=== PATIENT | male | born 1945 | race Caucasian/White ===

== ENCOUNTER → 2016-08-15 | Outpatient (CLI) | payer MEDICARE ==
[~2016-08-15] MED LIST: ALBU17IN INH; ASPI1TAB PO; ESZO1TAB3 PO; LIDO5DIS36 TD; LOSA50TA20 PO; OMEP40CA2 PO; PENT500C PO; VITA1CAP2 PO
--- NOTE | 2016-08-15 13:16 | REP ---
TWO VIEW CHEST: Two views of the chest are performed and compared to prior study of 01/01/2011. There is a small left pleural effusion. No pneumothorax or acute infiltrate is seen. There is diffuse interstitial fibrosis which is stable. Heart does not appear to be significantly enlarged. There is a calcification of the thoracic aorta. The mediastinal silhouette is unchanged. Multiple sternal wires and mediastinal clips are present. Metallic plate and screws are seen in the lower cervical spine. There are mild degenerative changes of the spine. Dorsal column stimulator is noted posteriorly. The visualized osseous structures are intact. IMPRESSION: Small left pleural effusion. No other radiographic evidence of acute abnormality.
== END ==
LOC: M CLY 09:40
PROVIDERS: ATTEND Nurse Practitioner
DX: S29.9XXA Unspecified injury of thorax, initial encounter (principal); J90 Pleural effusion, not elsewhere classified; W00.9XXA Unspecified fall due to ice and snow, initial encounter; Y92.9 Unspecified place or not applicable; Y93.9 Activity, unspecified; Y99.8 Other external cause status; X58.XXXA Exposure to other specified factors, initial encounter
CPT/HCPCS: 71020; G0463

== ENCOUNTER → 2016-08-28 | Outpatient (REF) | payer MEDICARE ==
[2016-08-28 17:35] LABS: BASO % 0.6 % (0.0-1.0); EOS # 0.2 K/mm3 (0.0-0.50); EOS % 2.9 % (0.0-3.0); LARGE UNSTAINED CELL # 0.2 K/mm3 (0.0-0.4); LARGE UNSTAINED CELL % 2.7 % (0.0-4.0); LYMPH # 1.5 K/mm3 (1.5-4.5); LYMPH % 24.1 % (24.0-44.0); MEAN CORPUSCULAR HEMOGLOBIN 34.2 pg (27.0-33.0); MEAN CORPUSCULAR HGB CONC 34.4 g/dl (32.0-36.5); MEAN CORPUSCULAR VOLUME 99.4 fl (80.0-96.0); MONO # 0.5 K/mm3 (0.0-0.8); MONO % 7.6 % (0.0-5.0); NEUTROPHILS # 3.8 K/mm3 (1.8-7.7); NEUTROPHILS % 62.1 % (36.0-66.0); PLATELET COUNT, AUTOMATED 159 k/mm3 (150-450); RED CELL DISTRIBUTION WIDTH 12.7 % (11.5-14.5)
[2016-08-28 18:03] LABS: ERYTHROCYTE SEDIMENTATION RATE 29 mm/hr (0-20)
[2016-08-28 18:48] LABS: ALBUMIN 3.8 GM/DL (3.2-5.2); ALBUMIN/GLOBULIN RATIO 1.06 (1.00-1.93); ALKALINE PHOSPHATASE 99 U/L (45-117); ALT/SGPT 29 U/L (12-78); ANION GAP 10 MEQ/L (8-16); AST/SGOT 18 U/L (15-37); BILIRUBIN,TOTAL 0.5 MG/DL (0.2-1.0); BLOOD UREA NITROGEN 18 MG/DL (7-18); CALCIUM LEVEL 9.1 MG/DL (8.8-10.2); CARBON DIOXIDE LEVEL 25 MEQ/L (21-32); CHLORIDE LEVEL 106 MEQ/L (98-107); CREATININE FOR GFR 0.74 MG/DL (0.70-1.30); GLOMERULAR FILTRATION RATE > 60.0 (>49); GLUCOSE, FASTING 97 MG/DL (80-110); POTASSIUM SERUM 4.1 MEQ/L (3.5-5.1); SODIUM LEVEL 141 MEQ/L (136-145); TOTAL PROTEIN 7.4 GM/DL (6.4-8.2); URIC ACID 4.8 MG/DL (3.5-7.2)
== END ==
LOC: M SFHCCLAY 11:45
PROVIDERS: ATTEND Family Medicine
DX: M25.40 Effusion, unspecified joint (principal)
CPT/HCPCS: 80053; 84550; 85025; 85652; 86038; 86140; 86200; G0463

== ENCOUNTER → 2016-09-10 | Day surgery (SDC) | payer MEDICARE ==
[~2016-09-10] VITALS: Ht 170.2 cm; Wt 97.1 kg
[~2016-09-10] MED LIST changes: +LIDOCAINE 2% INJ 100 MG/5 ML SDV (FOR ANES.) As Ordered ONE; +LR 1,000 ML IV SCH; +MIDAZOLAM INJ 2 MG/2 ML VIAL (J2250) As Ordered ONE; +NORCO, ANEXSIA 5/325MG TABLET (HYDROcodone/ACETAMINOPHEN) PO PRN; +ONDANSETRON 4MG/2ML VIAL (J2405) As Ordered ONE; +ONDANSETRON 4MG/2ML VIAL (J2405) IV PRN; +PROPOFOL 200 MG/20 ML VIAL As Ordered ONE; +ROPIvacaine 0.5% 30 ML INJECTION (J2795) As Ordered ONE; +ROPIvacaine 0.5% 30 ML INJECTION (J2795) XX ONE; +TRIAMCINOLONE ACETONIDE SUSP 40 MG/ML VIAL (J3301) As Ordered ONE; +TRIAMCINOLONE ACETONIDE SUSP 40 MG/ML VIAL (J3301) XX ONE; +ePHEDrine SULFATE 25 MG/5 ML(5MG/ML) SYRINGE As Ordered ONE; +fentaNYL 100 MCG/2 ML INJECTION (J3010) As Ordered ONE
[2016-09-10] MEDS: fentaNYL 100 MCG/2 ML INJECTION (J3010) IV PRN ×3 (08:35→08:59)
[2016-09-10 10:30] VITALS: BP 145/71
--- NOTE | 2016-09-10 14:57 | RO ---
DATE OF PROCEDURE: 09/10/2016 PREOPERATIVE DIAGNOSES: Right knee osteoarthritis, medial meniscus tear. POSTOPERATIVE DIAGNOSES: Right knee osteoarthritis, medial meniscus tear, with loose bodies in the anterior and lateral compartment. PROCEDURE: Right knee operative arthroscopy, partial medial meniscectomy, and excision of lateral compartment loose body, 8-9 mm. SURGEON: Jacques Bowers MD VETERINARY ATTENDANT: Shania Rivera PA-C ANESTHESIA: General. ESTIMATED BLOOD LOSS (EBL): Minimal. COMPLICATIONS: None. INDICATION: This is a 70-year-old gentleman who has had some gradually worsening right knee pain. He had a CT arthrogram that was suggestive of a meniscus tear. He had failed conservative management and wished to go ahead with surgical treatment. He understood the nature of the procedure, risks of bleeding, infection, damage to nerves, vessels, persistent pain, blood clots, stiffness, medical problems, among others. He understood that we are generally not able to help the arthritis component during arthroscopy. DESCRIPTION OF PROCEDURE: The patient taken to the operating room, placed in supine position after general anesthesia was induced. The right lower extremity was prepped and draped in the usual sterile fashion. I then after time-out was performed, I created inferomedial and inferolateral portals per routine. Identified the patellofemoral joint. However, it was very difficult to get into the patellofemoral joint due to significant osteophytes around the periphery of the patella, but he did seem to have fairly advanced patellofemoral arthritis. I proceeded down both gutters, identified the medial compartment. There was a posteromedial meniscus tear. This was debrided back with a combination of basket punch and a 4.2 shaver back to a stable rim, and I reprobed the meniscus. There was moderate arthritic business change manager the medial tibial plateau with some cartilage thinning and fraying. There was an area on the medial femoral condyle with full thickness articular cartilage loss with some loose flaps, and these were debrided back carefully with a shaver. Identified the notch. The anterior cruciate ligament (ACL) was intact, but at the tibial spines, there was a very large osteophyte that impinged on the notch and trochlea when I fully extended the knee; so, I removed this with a combination of a pituitary and a bur from just using the shaver. There was also a loose body in the lateral compartment that was approximately 8 mm or 9 mm in diameter, and I retrieved this and removed it with a pituitary. Lateral compartments otherwise examined. There was at least some moderate arthritis laterally. No significant lateral meniscus tear was noted. I then reexamined the entire joint, irrigated copiously, removed the instrumentation, closed the portals using 4-0 nylon suture, and injected 30 mL of Naropin with 40 mg of Kenalog. Sterile dressing was applied. Tourniquet was deflated. He was taken to recovery room in stable condition. There were no known complications. The plan will be routine postoperative.
== END | disposition home or self-care (01) ==
LOC: M SDC 05:37
PROVIDERS: ATTEND Orthopaedic Surgery
DX: M23.221 Derangement of posterior horn of medial meniscus due to old tear or injury, right knee (principal); M23.41 Loose body in knee, right knee; M25.761 Osteophyte, right knee; M17.11 Unilateral primary osteoarthritis, right knee; E11.9 Type 2 diabetes mellitus without complications; I10 Essential (primary) hypertension; J45.909 Unspecified asthma, uncomplicated; I51.9 Heart disease, unspecified; E78.00 Pure hypercholesterolemia, unspecified; Z79.899 Other long term (current) drug therapy; Z87.891 Personal history of nicotine dependence; N28.9 Disorder of kidney and ureter, unspecified; Z85.46 Personal history of malignant neoplasm of prostate; I25.2 Old myocardial infarction; Z79.82 Long term (current) use of aspirin; G47.30 Sleep apnea, unspecified
CPT/HCPCS: 29881; 88300; J0690; J2250; J2405; J2795; J3010; J3301

== ENCOUNTER → 2016-10-08 | Outpatient (CLI) | payer MEDICARE ==
[~2016-10-08] MED LIST changes: -LIDOCAINE 2% INJ 100 MG/5 ML SDV (FOR ANES.) As Ordered ONE; -LR 1,000 ML IV SCH; -MIDAZOLAM INJ 2 MG/2 ML VIAL (J2250) As Ordered ONE; -NORCO, ANEXSIA 5/325MG TABLET (HYDROcodone/ACETAMINOPHEN) PO PRN; -ONDANSETRON 4MG/2ML VIAL (J2405) As Ordered ONE; -ONDANSETRON 4MG/2ML VIAL (J2405) IV PRN; -PROPOFOL 200 MG/20 ML VIAL As Ordered ONE; -ROPIvacaine 0.5% 30 ML INJECTION (J2795) As Ordered ONE; -ROPIvacaine 0.5% 30 ML INJECTION (J2795) XX ONE; -TRIAMCINOLONE ACETONIDE SUSP 40 MG/ML VIAL (J3301) As Ordered ONE; -TRIAMCINOLONE ACETONIDE SUSP 40 MG/ML VIAL (J3301) XX ONE; -ePHEDrine SULFATE 25 MG/5 ML(5MG/ML) SYRINGE As Ordered ONE; -fentaNYL 100 MCG/2 ML INJECTION (J3010) As Ordered ONE
== END ==
LOC: M SLEEP 19:29
PROVIDERS: ATTEND Internal Medicine Pulmonary Disease
DX: G47.33 Obstructive sleep apnea (adult) (pediatric) (principal)

== ENCOUNTER → 2016-10-30 | Outpatient (CLI) | payer MEDICARE ==
--- NOTE | 2016-10-30 09:05 | REP ---
Chest two views HISTORY: Bronchitis Comparison: 08/15/2016 The lungs are clear. The heart is normal in size. The pulmonary vasculature is normal in appearance. The bony structure is intact. A dorsal column stimulator is present in the lower thoracic spinal canal. IMPRESSION: No acute disease.
== END ==
LOC: M CLY 07:43
PROVIDERS: ATTEND Family Medicine
DX: J44.0 Chronic obstructive pulmonary disease with (acute) lower respiratory infection (principal)
CPT/HCPCS: 71020; G0463

== ENCOUNTER → 2017-11-07 | Outpatient (CLI) | payer MEDICARE ==
[2017-11-07 14:20] LABS: BASO # 0.1 10^3/uL (0.0-0.2); BASO % 0.8 % (0.0-1.0); EOS # 0.2 10^3/uL (0.0-0.50); EOS % 2.5 % (0.0-3.0); HEMOGLOBIN 14.7 g/dl (13.5-17.5); IMMATURE GRANULOCYTE % 0.2 % (0-3.0); LYMPH # 1.9 10^3/uL (1.5-4.5); LYMPH % 30.1 % (24.0-44.0); MEAN CORPUSCULAR HEMOGLOBIN 34.7 pg (27.0-33.0); MEAN CORPUSCULAR VOLUME 99.1 fl (80.0-96.0); MONO # 0.8 10^3/uL (0.0-0.8); MONO % 12.1 % (0.0-5.0); NEUTROPHILS # 3.5 10^3/uL (1.8-7.7); NEUTROPHILS % 54.3 % (36.0-66.0); PLATELET COUNT, AUTOMATED 156 10^3/uL (150-450); RED BLOOD COUNT 4.24 10^6/uL (4.30-6.10); RED CELL DISTRIBUTION WIDTH 13.8 % (11.5-14.5); WHITE BLOOD COUNT 6.4 10^3/uL (4.0-10.0)
[2017-11-07 14:33] LABS: D-DIMER QUANT 513.2 ng/ml (<500)
[2017-11-07 14:52] LABS: ANION GAP 5 MEQ/L (8-16); BLOOD UREA NITROGEN 12 MG/DL (7-18); CALCIUM LEVEL 9.3 MG/DL (8.8-10.2); CARBON DIOXIDE LEVEL 29 MEQ/L (21-32); CHLORIDE LEVEL 109 MEQ/L (98-107); CREATININE FOR GFR 0.83 MG/DL (0.70-1.30); GLOMERULAR FILTRATION RATE > 60.0 (>42); GLUCOSE, FASTING 62 MG/DL (70-100); NT-PRO BNP 67 PG/ML (<125); SODIUM LEVEL 143 MEQ/L (136-145)
== END ==
LOC: M LAB 13:57
DX: I25.10 Atherosclerotic heart disease of native coronary artery without angina pectoris (principal); I11.9 Hypertensive heart disease without heart failure; I50.32 Chronic diastolic (congestive) heart failure; R06.02 Shortness of breath
CPT/HCPCS: 80048

== ENCOUNTER → 2017-12-04 | Outpatient (CLI) | payer MEDICARE ==
[2017-12-04 11:42] LABS: AMORPHOUS SEDIMENT SMALL (NEGATIVE); APPEARANCE, URINE CLEAR (CLEAR); BACTERIA, URINE AUTO NEGATIVE (NEGATIVE); BILIRUBIN, URINE AUTO NEGATIVE (NEGATIVE); BLOOD, URINE BLOOD NEGATIVE (NEGATIVE); COLOR, URINE YELLOW (YELLOW); GLUCOSE, URINE (UA) AUTO NEGATIVE (NEGATIVE); KETONE, URINE AUTO NEGATIVE (NEGATIVE); LEUKOCYTE ESTERASE, URINE AUTO NEGATIVE (NEGATIVE); MUCUS, URINE SMALL (NEGATIVE); NITRITE, URINE AUTO NEGATIVE (NEGATIVE); PROTEIN, URINE AUTO NEGATIVE (NEGATIVE); RBC, URINE AUTO 0 /HPF (0-3); SPECIFIC GRAVITY URINE AUTO 1.014 (1.002-1.035); SQUAMOUS EPITHELIAL CELL UR AU 0 /HPF (0-6); UROBILINOGEN, URINE AUTO 0.2 mg/dL (0.0-2.0); WBC, URINE AUTO 0 /HPF (0-3)
[2017-12-04 11:43] LABS: HEMATOCRIT 38.5 % (42.0-52.0); HEMOGLOBIN 13.6 g/dl (13.5-17.5); MEAN CORPUSCULAR HEMOGLOBIN 34.8 pg (27.0-33.0); MEAN CORPUSCULAR HGB CONC 35.3 g/dl (32.0-36.5); MEAN CORPUSCULAR VOLUME 98.5 fl (80.0-96.0); PLATELET COUNT, AUTOMATED 149 10^3/uL (150-450); RED BLOOD COUNT 3.91 10^6/uL (4.30-6.10); RED CELL DISTRIBUTION WIDTH 13.8 % (11.5-14.5); WHITE BLOOD COUNT 4.8 10^3/uL (4.0-10.0)
[2017-12-04 11:50] LABS: INR 1.03; PROTHROMBIN TIME 13.6 SECONDS (12.4-14.5)
[2017-12-04 12:09] LABS: ALBUMIN 3.8 GM/DL (3.2-5.2); ALBUMIN/GLOBULIN RATIO 1.12 (1.00-1.93); ALKALINE PHOSPHATASE 84 U/L (45-117); ALT/SGPT 36 U/L (12-78); ANION GAP 7 MEQ/L (8-16); AST/SGOT 25 U/L (7-37); BILIRUBIN,TOTAL 0.7 MG/DL (0.2-1.0); BLOOD UREA NITROGEN 19 MG/DL (7-18); CALCIUM LEVEL 9.1 MG/DL (8.8-10.2); CARBON DIOXIDE LEVEL 25 MEQ/L (21-32); CHLORIDE LEVEL 110 MEQ/L (98-107); CREATININE FOR GFR 0.99 MG/DL (0.70-1.30); GLOMERULAR FILTRATION RATE > 60.0 (>42); GLUCOSE, FASTING 103 MG/DL (70-100); POTASSIUM SERUM 4.2 MEQ/L (3.5-5.1); SODIUM LEVEL 142 MEQ/L (136-145); TOTAL PROTEIN 7.2 GM/DL (6.4-8.2)
[2017-12-04 12:28] LABS: ERYTHROCYTE SEDIMENTATION RATE 22 mm/hr (0-20)
== END ==
LOC: M ADMPAT 09:34
DX: Z01.818 Encounter for other preprocedural examination (principal); M17.11 Unilateral primary osteoarthritis, right knee; J45.909 Unspecified asthma, uncomplicated; I51.9 Heart disease, unspecified; Z98.61 Coronary angioplasty status; Z79.01 Long term (current) use of anticoagulants; Z79.899 Other long term (current) drug therapy
CPT/HCPCS: 71046

== ENCOUNTER 2017-12-23 08:39 | Inpatient (IN) | payer MEDICARE ==
[2017-12-23] MEDS: MESALAMINE 250 MG CR CAP PO ×2 (09:00→20:22)
[2017-12-23] MEDS ORDERED: MIDAZOLAM INJ 2 MG/2 ML VIAL (J2250) As Ordered ×2 (09:19→09:34)
[2017-12-23] MEDS ORDERED: HYDROmorphone HCL 2 MG/ML 1ML VIAL (J1170) As Ordered ×2 (09:19→11:56)
[2017-12-23] MEDS ORDERED: PROPOFOL 200 MG/20 ML VIAL As Ordered (09:21)
[2017-12-23] MEDS ORDERED: LIDOCAINE 2% INJ 100 MG/5 ML SDV (FOR ANES.) As Ordered (09:21)
[2017-12-23] MEDS: LIDOCAINE 1% MDV 20ML VIAL SQ (09:24)
[2017-12-23] MEDS: LR 1,000 ML IV ×3 (09:24→14:54)
[2017-12-23] MEDS ORDERED: fentaNYL 100 MCG/2 ML INJECTION (J3010) As Ordered (09:34)
[2017-12-23] MEDS ORDERED: ROCURONIUM BROMIDE 50 MG/5 ML VIAL As Ordered (09:50)
[2017-12-23] MEDS: MIDAZOLAM INJ 2 MG/2 ML VIAL (J2250) IV (10:02)
[2017-12-23] MEDS: fentaNYL 100 MCG/2 ML INJECTION (J3010) IV (10:02)
[2017-12-23] MEDS ORDERED: ROPIvacaine 0.5% 30 ML INJECTION (J2795 PER 1MG) (10:57)
[2017-12-23] MEDS ORDERED: dexameTHASONE 10 MG/1 ML VIAL PRES.FREE (J1100) (10:57)
[2017-12-23] MEDS ORDERED: EPINEPHrine INJ 1 MG/ML 1ML AMP (10:57)
[2017-12-23] MEDS ORDERED: dexameTHASONE 4 MG/ML 1ML VIAL (J1100) As Ordered (11:12)
[2017-12-23] MEDS ORDERED: ONDANSETRON 4MG/2ML VIAL (J2405) As Ordered (11:12)
[2017-12-23] MEDS ORDERED: ePHEDrine SULFATE 25 MG/5 ML(5MG/ML) SYRINGE As Ordered (11:15)
[2017-12-23] MEDS: ceFAZolin 1GM INJ (J0690 PER 500MG) As Ordered (11:21)
[2017-12-23] MEDS: EPINEPHrine INJ 1 MG/ML 1ML AMP As Ordered (11:21)
[2017-12-23] MEDS: TRANEXAMIC ACID 100 MG/ML 10ML VIAL As Ordered (11:22)
[2017-12-23] MEDS ORDERED: SUGAMMADEX SODIUM 500 MG/5 ML VIAL (BRIDION) As Ordered (11:42)
[2017-12-23] MEDS: BUPIVACAINE LIPOSOME/PF 1.3% 20 ML VIAL (13.3MG/ML)(EXPAREL) As Ordered (11:50)
[2017-12-23] MEDS ORDERED: MORPHINE 1MG/ML IN 0.9% NACL 100ML IV BAG As Ordered (12:00)
[2017-12-23] MEDS ORDERED: fentaNYL 100 MCG/2 ML INJECTION (J3010) IV (12:30)
[2017-12-23] MEDS ORDERED: ONDANSETRON 4MG/2ML VIAL (J2405) IV ×3 (12:30→12:45)
[2017-12-23] MEDS ORDERED: ALBUTEROL 90 MCG/ACT 8GM HFA INHALER INH (12:45)
[2017-12-23] MEDS ORDERED: NALOXONE INJ 0.4 MG/1 ML VIAL (J2310) IV (12:45)
[2017-12-23] MEDS ORDERED: IPRATROPIUM 0.5MG/ALBUTEROL 2.5MG INH SOL UD 3ML (DUONEB)(J7620) NEB (12:45)
[2017-12-23] MEDS ORDERED: ACETAMINOPHEN TAB 650MG DOSE (2X325MG) PO (12:45)
[2017-12-23] MEDS ORDERED: MORPHINE 1MG/ML IN 0.9% NACL 100ML IV BAG IV (12:45)
[2017-12-23] MEDS ORDERED: EPIDURAL/PCA KEYS XX (12:45)
[2017-12-23] MEDS ORDERED: NALBUPHINE HCL 10 MG/ML AMP (J2300) IV (12:45)
[2017-12-23] MEDS ORDERED: diphenhydrAMINE INJ 50MG/ML VIAL (J1200) IV (12:45)
[2017-12-23] MEDS ORDERED: FLEET ENEMA PR (12:45)
[2017-12-23] MEDS ORDERED: LIDOCAINE 5% (LIDODERM) PATCH TD (13:30)
[2017-12-23] MEDS: PROMETHAZINE INJ 25 MG/ML VIAL (J2550) IV (14:42)
[2017-12-23] MEDS: OMEPRAZOLE 20 MG CAP PO (14:42)
[2017-12-23] MEDS: ASPIRIN 81 MG ENTERIC TAB PO (14:48)
[2017-12-23] MEDS: VITAMIN D 1,000 INTERNATIONAL UNITS TABLET PO (14:49)
[2017-12-23] MEDS: WARFARIN SOD 5 MG TAB PO (18:31)
[2017-12-23] MEDS: LOSARTAN 50 MG TAB PO (18:31)
[2017-12-23] MEDS: SENOKOT S TAB PO (20:22)
[2017-12-23] MEDS: ATORVASTATIN 20 MG TAB PO (20:22)
[2017-12-23] MEDS: SYMBICORT 80/4.5MCG INHALER 6GM INH (20:58)
[2017-12-23] MEDS: **NOTE PATIENT COMMENT** MISC XX (21:00)
[2017-12-24] MEDS: LR 1,000 ML IV (02:05)
[2017-12-24 06:37] LABS: HEMATOCRIT 33.9 % (42.0-52.0); HEMOGLOBIN 11.9 g/dl (13.5-17.5); MEAN CORPUSCULAR HEMOGLOBIN 35.4 pg (27.0-33.0); MEAN CORPUSCULAR HGB CONC 35.1 g/dl (32.0-36.5); MEAN CORPUSCULAR VOLUME 100.9 fl (80.0-96.0); PLATELET COUNT, AUTOMATED 150 10^3/uL (150-450); RED BLOOD COUNT 3.36 10^6/uL (4.30-6.10); RED CELL DISTRIBUTION WIDTH 14.3 % (11.5-14.5); WHITE BLOOD COUNT 12.3 10^3/uL (4.0-10.0)
[2017-12-24 06:47] LABS: INR 1.18; PROTHROMBIN TIME 15.2 SECONDS (12.4-14.5)
[2017-12-24 06:58] LABS: ANION GAP 5 MEQ/L (8-16); BLOOD UREA NITROGEN 19 MG/DL (7-18); CALCIUM LEVEL 8.4 MG/DL (8.8-10.2); CARBON DIOXIDE LEVEL 26 MEQ/L (21-32); CHLORIDE LEVEL 108 MEQ/L (98-107); CREATININE FOR GFR 0.99 MG/DL (0.70-1.30); GLOMERULAR FILTRATION RATE > 60.0 (>42); GLUCOSE, FASTING 171 MG/DL (70-100); MAGNESIUM LEVEL 2.3 MG/DL (1.8-2.4); POTASSIUM SERUM 4.3 MEQ/L (3.5-5.1); SODIUM LEVEL 139 MEQ/L (136-145)
[2017-12-24] MEDS ORDERED: ONDANSETRON 4 MG TAB (S0181) PO (07:15)
[2017-12-24] MEDS ORDERED: PERCOCET 5MG/325MG TAB PO (07:15)
[2017-12-24] MEDS: PERCOCET 5MG/325MG TAB PO ×2 (08:00→13:24)
[2017-12-24] MEDS: SYMBICORT 80/4.5MCG INHALER 6GM INH (08:26)
[2017-12-24] MEDS: MESALAMINE 250 MG CR CAP PO (09:11)
[2017-12-24] MEDS: FUROSEMIDE 40 MG TAB PO (09:11)
[2017-12-24] MEDS: MIRALAX *UNIT DOSE* 17GM PACKET PO (09:11)
[2017-12-24] MEDS: MOM 30ML SUSPENSION UDC PO (09:11)
[2017-12-24] MEDS: OMEPRAZOLE 20 MG CAP PO (09:11)
[2017-12-24] MEDS: ASPIRIN 81 MG ENTERIC TAB PO (09:12)
[2017-12-24] MEDS: SENOKOT S TAB PO (09:12)
[2017-12-24] MEDS: VITAMIN D 1,000 INTERNATIONAL UNITS TABLET PO (09:14)
[2017-12-24] MEDS: LOSARTAN 50 MG TAB PO (09:14)
[2017-12-24] MEDS ORDERED: WARFARIN SOD 5 MG TAB PO (17:00)
[2017-12-24] MEDS ORDERED: WARFARIN SOD 7.5 MG TAB PO (17:00)
[2017-12-25] MEDS ORDERED: METHOTREXATE 2.5 MG TAB (J8610 PER 2.5MG) PO (09:00)
== END 2017-12-24 14:55 | disposition home health service (06) | DRG 470 ==
LOC: M OR 08:39 → M MS5PR 13:20
PROC: 0SRC0J9 Replacement of Right Knee Joint with Synthetic Substitute, Cemented, Open Approach (ICD-10-PCS; principal; 2017-12-23 10:41)
DX: M17.11 Unilateral primary osteoarthritis, right knee (principal); I11.0 Hypertensive heart disease with heart failure; I50.9 Heart failure, unspecified; E78.5 Hyperlipidemia, unspecified; G47.00 Insomnia, unspecified; K21.9 Gastro-esophageal reflux disease without esophagitis; G47.33 Obstructive sleep apnea (adult) (pediatric); M81.0 Age-related osteoporosis without current pathological fracture; E29.1 Testicular hypofunction; I25.10 Atherosclerotic heart disease of native coronary artery without angina pectoris; M06.9 Rheumatoid arthritis, unspecified; M54.5 Low back pain; J45.909 Unspecified asthma, uncomplicated; Z86.711 Personal history of pulmonary embolism; Z98.1 Arthrodesis status; Z79.82 Long term (current) use of aspirin; Z79.899 Other long term (current) drug therapy; Z91.040 Latex allergy status; Z91.048 Other nonmedicinal substance allergy status; Z88.8 Allergy status to other drugs, medicaments and biological substances; Z95.1 Presence of aortocoronary bypass graft; Z79.891 Long term (current) use of opiate analgesic; Z87.891 Personal history of nicotine dependence

== ENCOUNTER → 2017-12-30 | Outpatient (REF) | payer MEDICARE ==
[2017-12-30 15:43] LABS: INR 2.14; PROTHROMBIN TIME 24.7 SECONDS (12.4-14.5)
== END ==
LOC: M SHH 15:11
DX: Z79.01 Long term (current) use of anticoagulants (principal)
CPT/HCPCS: 85610

== ENCOUNTER → 2018-01-07 | Outpatient (REF) | payer MEDICARE ==
[2018-01-07 13:12] LABS: INR 1.89; PROTHROMBIN TIME 22.3 SECONDS (12.4-14.5)
== END ==
LOC: M LAB REF 12:48
DX: Z47.1 Aftercare following joint replacement surgery (principal); Z96.651 Presence of right artificial knee joint
CPT/HCPCS: 85610

== ENCOUNTER → 2018-01-09 | Outpatient (REF) | payer MEDICARE ==
[2018-01-09 18:44] LABS: INR 2.07
== END ==
LOC: M SHH 17:29
DX: Z51.81 Encounter for therapeutic drug level monitoring (principal); Z79.01 Long term (current) use of anticoagulants
CPT/HCPCS: 85610

== ENCOUNTER → 2018-01-13 | Outpatient (REF) | payer MEDICARE ==
[2018-01-13 14:15] LABS: INR 1.59; PROTHROMBIN TIME 19.4 SECONDS (12.4-14.5)
== END ==
LOC: M SHH 13:48
DX: Z79.01 Long term (current) use of anticoagulants (principal)
CPT/HCPCS: 85610

== ENCOUNTER → 2018-07-15 | Outpatient (CLI) | payer MEDICARE | LOC: M CLY 11:11 | DX: R06.02 Shortness of breath (principal); Z96.9 Presence of functional implant, unspecified; Z98.1 Arthrodesis status; Z98.890 Other specified postprocedural states | CPT/HCPCS: 71046; G0463 ==

== ENCOUNTER → 2019-10-15 | Outpatient (REF) | payer MEDICARE ==
[~2019-10-15] MED LIST changes: -ASPI1TAB PO; +ASPI81TA26 PO; +ATOR40TA75; +BREO1INH3; +CALC-190 PO; -ESZO1TAB3 PO; +ESZO1TAB6 PO; +FLUTISP; +LASI40TA9 PO; -LIDO5DIS36 TD; +LIDO5DIS41 TD; -LOSA50TA20 PO; +LOSA50TA88 PO; +METH2.5T48 PO; +MORP-69 PO; +MORP15TA2; +MORP15TA2 PO; +NITR0.4S14 SL; -OMEP40CA2 PO; +OMEP40CA97 PO; +PERCOCET PO; +SYMB80INH INH; +VITA-183 PO; -VITA1CAP2 PO
[2019-10-15 13:02] LABS: BLOOD UREA NITROGEN 19 MG/DL (7-18); CALCIUM LEVEL 9.2 MG/DL (8.8-10.2); CARBON DIOXIDE LEVEL 27 MEQ/L (21-32); CHLORIDE LEVEL 104 MEQ/L (98-107); CREATININE FOR GFR 1.03 MG/DL (0.70-1.30); GLOMERULAR FILTRATION RATE > 60.0 (>42); GLUCOSE, FASTING 112 MG/DL (70-100); SODIUM LEVEL 137 MEQ/L (136-145)
== END ==
LOC: M SFHCCLAY 07:29
PROVIDERS: ATTEND Family Medicine
DX: I50.812 Chronic right heart failure (principal)
CPT/HCPCS: 80048; G0463

== ENCOUNTER → 2020-08-02 | Outpatient (CLI) | payer SELFPAY | LOC: M LABSMTC 12:59 | PROVIDERS: ATTEND Pediatrics | DX: Z20.828 Contact with and (suspected) exposure to other viral communicable diseases (principal) ==

== ENCOUNTER → 2020-09-16 | Outpatient (REF) | payer MEDICARE ==
[2020-09-16 11:49] LABS: HEMOGLOBIN A1c 6.3 %
[2020-09-16 12:07] LABS: BLOOD UREA NITROGEN 16 MG/DL (7-18); CALCIUM LEVEL 9.6 MG/DL (8.8-10.2); CARBON DIOXIDE LEVEL 29 MEQ/L (21-32); CHLORIDE LEVEL 106 MEQ/L (98-107); CREATININE FOR GFR 0.98 MG/DL (0.70-1.30); GLOMERULAR FILTRATION RATE > 60.0 (>42); GLUCOSE, FASTING 157 MG/DL (70-100); POTASSIUM SERUM 4.1 MEQ/L (3.5-5.1); SODIUM LEVEL 142 MEQ/L (136-145)
== END ==
LOC: M SFHCCLAY 08:09
PROVIDERS: ATTEND Family Medicine
DX: R73.01 Impaired fasting glucose (principal)

== ENCOUNTER → 2020-12-11 | Outpatient (CLI) | payer MEDICARE | LOC: M LABSMTC 10:50 | PROVIDERS: ATTEND Anesthesiology Pain Medicine | DX: Z01.812 Encounter for preprocedural laboratory examination (principal); Z20.822 Contact with and (suspected) exposure to COVID-19 ==

== ENCOUNTER → 2021-05-11 | Outpatient (CLI) | payer MEDICARE ==
[~2021-05-11] MED LIST changes: +OMEP40CA4 PO; -OMEP40CA97 PO
--- NOTE | 2021-05-11 12:32 | REP ---
INDICATION: PRESENSE OF RT ART KNEE. COMPARISON: There are no prior postoperative examinations for comparison TECHNIQUE: 2 x 2 mm helical scans through the right knee were obtained with sagittal and coronal reconstructions. FINDINGS: There is beam hardening artifact arising from the knee arthroplasty. There is no evidence of an acute fracture. No definite periprosthetic lucencies are identified. The alignment appears near anatomical. There is no abnormal soft tissue swelling identified. IMPRESSION: No acute abnormalities are identified. Findings as described above. <Electronically signed by Nimesh Berkowitz > 05/11/21 [id number]
== END ==
LOC: M RAD 11:18
PROVIDERS: ATTEND Physician Assistant Surgical
DX: Z96.651 Presence of right artificial knee joint (principal)

== ENCOUNTER → 2023-09-19 | Outpatient (REF) | payer MEDICARE ==
[~2023-09-19] MED LIST changes: +LOSA50TA28 PO; -LOSA50TA88 PO
[2023-09-19 18:11] LABS: BASO # 0.1 10^3/uL (0.0-0.2); EOS # 0.3 10^3/uL (0.0-0.5); EOS % 4.8 % (0.0-3.0); HEMATOCRIT 40.1 % (42.0-52.0); HEMOGLOBIN 13.8 g/dl (13.5-17.5); LYMPH # 2.2 10^3/uL (1.5-5.0); LYMPH % 37.8 % (24.0-44.0); MEAN CORPUSCULAR HGB CONC 34.4 g/dl (32.0-36.5); MEAN CORPUSCULAR VOLUME 104.7 fl (80.0-96.0); MONO # 1.2 10^3/uL (0.0-0.8); MONO % 20.3 % (2.0-8.0); NEUTROPHILS # 2.1 10^3/uL (1.5-8.5); NEUTROPHILS % 35.8 % (36.0-66.0); PLATELET COUNT, AUTOMATED 136 10^3/uL (150-450); RED BLOOD COUNT 3.83 10^6/uL (4.30-6.10); WHITE BLOOD COUNT 5.9 10^3/uL (4.0-10.0)
[2023-09-19 18:41] LABS: ALBUMIN 3.4 G/DL (3.2-5.2); ALKALINE PHOSPHATASE 73 U/L (46-116); ALT/SGPT 39 U/L (7.0-40); AST/SGOT 20 U/L (<34); BILIRUBIN,TOTAL 1.1 MG/DL (0.3-1.2); BLOOD UREA NITROGEN 22 MG/DL (9-23); CARBON DIOXIDE LEVEL 28 MMOL/L (20-31); CHLORIDE LEVEL 107 MMOL/L (98-107); CREATININE FOR GFR 0.86 MG/DL (0.70-1.30); GLOMERULAR FILTRATION RATE > 60.0 (>42); GLUCOSE, FASTING 99 MG/DL (74-106); POTASSIUM SERUM 4.3 MMOL/L (3.5-5.1); SODIUM LEVEL 141 MMOL/L (136-145); TOTAL PROTEIN 6.6 G/DL (5.7-8.2)
== END ==
LOC: M SFHCCLAY 13:36
PROVIDERS: ATTEND Family Medicine
DX: I50.812 Chronic right heart failure (principal); Z79.899 Other long term (current) drug therapy